=== PATIENT | female | born 1995 | race Caucasian/White ===

== ENCOUNTER → 2020-02-27 | Outpatient (CLI) | payer OTHER ==
--- NOTE | 2020-02-27 14:33 | US ---
EXAMINATION TYPE: US thyroid st tissue head/neck DATE OF EXAM: 02/27/2020 COMPARISON: NONE CLINICAL HISTORY: R59.9 Enlarged lymph nodes. Enlarged lymph node GLAND SIZE: Right Lobe: 3.3 x 1.2 x 1.1 cm cm Overall Parenchyma: homogenous Left Lobe: 4.1 x 1.1 x 1.0 cm Overall Parenchyma: homogeneous Isthmus Thickness: .14 cm NODULES RIGHT: # of nodules measured on right: 0 LEFT: # of nodules measured on left: 0 ISTHMUS: # of nodules measured in the isthmus: 0 Bilateral neck scanned, no evidence of lymphadenopathy. IMPRESSION: No sizable thyroid nodules. Ultrasound the thyroid is normal. 2017 ACR TI-RADS LEVEL: TR-RADS 1 - BENIGN: No FNA *Highest TI-RADS level nodule reported
== END | disposition home or self-care (01) ==
LOC: RADUSWWP 13:21
PROVIDERS: ATTEND Family Medicine
DX: R59.9 Enlarged lymph nodes, unspecified (principal)
CPT/HCPCS: 76536